=== PATIENT | female | born 1995 ===

== ENCOUNTER 2018-07-07 04:03 | Emergency (ER) | payer MEDICAID ==
[2018-07-07 04:14] VITALS: O2SAT 99
--- NOTE | 2018-07-07 04:57 | C.PDOC ---
History Of Present Illness 22 year old female presents to the ED c/o lower back pain, suprapubic pain and vaginal bleeding. Patient states she took a test at home that was positive 2 weeks ago. Patient states her vaginal bleeding has decreased on arrival to the ED. Patient denies fever, chills, nausea, vomit, diarrhea, dizziness, weakness, numbness. Time Seen by Provider: 07/07/18 04:19 Chief Complaint (Nursing): Female Genitourinary History Per: Patient History/Exam Limitations: no limitations Onset/Duration Of Symptoms: Days Current Symptoms Are (Timing): Still Present Quality Of Discomfort: "Pain" Associated Symptoms: denies: Nausea, Vomiting, Diarrhea Recent travel outside of the [place]: No Additional History Per: Patient Abnormal Vaginal Bleeding: Yes Last Menstral Period: 05/23/18 Past Medical History Reviewed: Historical Data, Nursing Documentation, Vital Signs Vital Signs: Last Vital Signs Temp 98.3 F 07/07/18 04:08 Pulse 83 07/07/18 04:08 Resp 20 07/07/18 04:08 BP 108/70 07/07/18 04:08 Pulse Ox 99 07/07/18 04:59 - Medical History PMH: No Chronic Diseases Surgical History: No Surg Hx Family History: States: Unknown Family Hx - Social History Hx Alcohol Use: No Hx Substance Use: No Review Of Systems Constitutional: Negative for: Fever, Chills Cardiovascular: Negative for: Chest Pain, Palpitations Respiratory: Negative for: Cough, Shortness of Breath Gastrointestinal: Positive for: Abdominal Pain. Negative for: Nausea, Vomiting , Diarrhea Genitourinary: Positive for: Vaginal Bleeding. Negative for: Dysuria Musculoskeletal: Negative for: Back Pain Skin: Negative for: Rash Neurological: Negative for: Weakness, Numbness Physical Exam - Physical Exam Appears: Non-toxic, No Acute Distress Skin: Normal Color, Warm, Dry Head: Atraumatic, Normacephalic Eye(s): bilateral: Normal Inspection Oral Mucosa: Moist Neck: Normal ROM, Supple Chest: Symmetrical Cardiovascular: Rhythm Regular Respiratory: Normal Breath Sounds, No Rales, No Rhonchi, No Wheezing Gastrointestinal/Abdominal: Soft, Tenderness (suprapubic), No Guarding, No Rebound Back: No CVA Tenderness, Paraspinal Tenderness Pelvic: Normal External Exam, Vaginal Discharge (pinkish bloody), No Cervix Open , No Adnexal Tenderness, No Mass, Other (OS closed) Extremity: Normal ROM, No Tenderness, No Swelling Neurological/Psych: Oriented x3, Normal Speech Gait: Steady ED Course And Treatment - Laboratory Results Result Diagrams: 07/07/18 05:05 07/07/18 05:05 Urine POC: Positive O2 Sat by Pulse Oximetry: 99 (ON RA) Pulse Ox Interpretation: Normal Progress Note: Plan: - Labs. - Tyleol 975 mg PO. - UA. 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 - Scribe Statement The provider has reviewed the documentation as recorded by the Scribe Baljit Whitaker All medical record entries made by the Scribe were at my direction and personally dictated by me. I have reviewed the chart and agree that the record accurately reflects my personal performance of the history, physical exam, medical decision making, and the department course for this patient. I have also personally directed, reviewed, and agree with the discharge instructions and disposition. Physician Patient Turnover Patient Signed Over To: Salina Miller Handoff Comments: Pending type screen and OB US
[2018-07-07 05:07] LABS: SQUAMOUS EPITHIAL 4 /hpf (0-5); URINE BACTERIA OCC (<OCC); URINE BILIRUBIN NEGATIVE (NEGATIVE); URINE BLOOD 3+ (NEGATIVE); URINE CLARITY Hazy (Clear); URINE COLOR Yellow (YELLOW); URINE GLUCOSE (UA) NORMAL (Normal); URINE LEUKOCYTE ESTERASE NEG Leu/uL (Negative); URINE PROTEIN 1+ mg/dL (NEGATIVE)
[2018-07-07 05:08] LABS: BASO # 0.1 K/uL (0.0-0.2); BASO % 0.5 % (0.0-2.0); EOS # 0.3 K/uL (0.0-0.7); EOS % 1.8 % (0.0-4.0); HEMOGLOBIN 12.6 g/dL (11.0-16.0); LYMPH # 3.6 K/uL (1.0-4.3); LYMPH % 24.5 % (20.0-40.0); MEAN CELL VOLUME 86.8 fL (81.0-99.0); MEAN CORPUSCULAR HEMOGLOBIN 29.3 pg (27.0-31.0); MEAN CORPUSCULAR HGB CONC 33.7 g/dL (33.0-37.0); MEAN PLATELET VOLUME 8.2 fL (7.2-11.7); MONO % 6.9 % (0.0-10.0); NEUT # 9.7 K/uL (1.8-7.0); NEUT % 66.3 % (50.0-75.0); RBC 4.29 Mil/uL (3.80-5.20); RED CELL DISTRIBUTION WIDTH 13.6 % (11.5-14.5); WHITE BLOOD COUNT 14.6 K/uL (4.8-10.8)
[2018-07-07 05:21] LABS: ALB/GLOB RATIO 1.6 (1.0-2.1); ALBUMIN 4.4 g/dL (3.5-5.0); ALT/SGPT 27 U/L (9-52); AST/SGOT 17 U/L (14-36); BLOOD UREA NITROGEN 10 mg/dL (7-17); CALCIUM 9.3 mg/dl (8.6-10.4); GFR AFRICAN-AMERICAN > 60; GFR NON-AFRICAN AMERICAN > 60
[2018-07-07 08:48] VITALS: BP 101/58; PULSE 81; RESP 16; TEMP 98.6
--- NOTE | 2018-07-07 13:35 | US ---
Pelvic ultrasound History: . Bleeding. Comparison: None available. Technique: Real-time sonography was performed through the pelvis utilizing transvaginal technique. Findings: Uterus: 9.4 x 7.2 x 7.5 centimeters. Heterogeneous echotexture. Anteverted. Cervix measures 3.9 centimeters. Intrauterine with intrauterine gestational sac measuring 2.3 centimeters corresponding to a gestational age of 7 weeks and 0 days. Yolk sac identified measuring 6.7 millimeters. [place]-rump length measures 4 millimeters corresponding to a gestational age of 6 weeks 4 days. heart rate of 130 beats per minute. No free fluid in the pelvic cul-de-sac. Right ovary: 4.1 x 1.8 x 3.3 centimeters. Normal flow. Heterogeneous complex cyst/corpus luteal cyst measuring 2.2 x 1.5 x 2.2 centimeters. Left ovary: 2.8 x 1.8 x 2.9 centimeters. Normal flow. Impression: Intrauterine corresponding to a gestational age of 6 weeks 4 days by crown-rump length of 4 millimeters. heart rate of 130 beats per minute. Right ovarian complex cyst/corpus luteal cyst measuring 2.2 centimeters. Limited 1st trimester ultrasound for viability purposes only. Continued interval followup with serial ultrasound, serial HCG levels, and gynecological consultation would be helpful if clinically indicated. These findings were preliminarily reported at 8:16 a.m. on 07/07/[address] Celestino Landin from [employer].
== END 2018-07-07 08:47 | disposition home or self-care (01) ==
LOC: C.ER 04:03
DX: O46.8X1 Other antepartum hemorrhage, first trimester (principal); Z3A.01 Less than 8 weeks gestation of pregnancy

== ENCOUNTER 2018-08-05 14:47 | Emergency (ER) | payer MEDICAID ==
[2018-08-05 16:05] LABS: BASO # 0.1 K/uL (0.0-0.2); BASO % 0.4 % (0.0-2.0); EOS # 0.4 K/uL (0.0-0.7); EOS % 3.1 % (0.0-4.0); HEMOGLOBIN 11.9 g/dL (11.0-16.0); LYMPH # 4.1 K/uL (1.0-4.3); LYMPH % 33.4 % (20.0-40.0); MEAN CELL VOLUME 86.6 fL (81.0-99.0); MEAN CORPUSCULAR HEMOGLOBIN 29.9 pg (27.0-31.0); MEAN CORPUSCULAR HGB CONC 34.5 g/dL (33.0-37.0); MEAN PLATELET VOLUME 8.5 fL (7.2-11.7); MONO # 0.5 K/uL (0.0-0.8); MONO % 4.4 % (0.0-10.0); NEUT # 7.2 K/uL (1.8-7.0); NEUT % 58.7 % (50.0-75.0); NRBC % 0.1 % (0.0-2.0); RBC 3.98 Mil/uL (3.80-5.20); WHITE BLOOD COUNT 12.3 K/uL (4.8-10.8)
[2018-08-05 16:26] LABS: ALB/GLOB RATIO 1.2 (1.0-2.1); ALBUMIN 3.9 g/dL (3.5-5.0); ALT/SGPT 24 U/L (9-52); AST/SGOT 17 U/L (14-36); BLOOD UREA NITROGEN 10 mg/dL (7-17); CALCIUM 9.3 mg/dl (8.6-10.4); GFR NON-AFRICAN AMERICAN > 60; LIPASE 69 U/L (23-300)
--- NOTE | 2018-08-05 17:08 | US ---
Date of service: 08/05/2018 PROCEDURE: OB Pelvic Ultrasound HISTORY: vaginal bleeding - LMP LMP: 05/23/2018 COMPARISON: Pelvic ultrasound dated 07/07/2018. FINDINGS: UTERUS: Gestational sac: Single intrauterine gestation. Measures 5.8 cm compatible with estimated gestational age is 11 weeks, 6 days Yolk sac: Measures 0.4 cm pole: [place]-rump length measures 3.8 cm compatible with estimated gestational age of 10 weeks, 5 days Heart rate: 154 bpm. age (Ultrasound estimated): 11 weeks, 2 days Maty-gestational hemorrhage: None. Date of delivery (Ultrasound estimated) : 02/22/2019 Uterus measures 13.4 x 0.5 x 10.7 cm. Normal in size and appearance. CERVIX: Measures 3.4 cm. Long and closed. No cervical abnormality seen. RIGHT OVARY: Measures 3.6 x 2.0 x 3.1 cm. No mass lesion. Normal flow. LEFT OVARY: Not visualized FREE FLUID: None. OTHER FINDINGS: None. IMPRESSION: Single viable intrauterine gestation with average ultrasound age of 11 weeks, 2 days. heart rate 154 beats per minute. Cervix long and closed.
--- NOTE | 2018-08-05 17:09 | C.PDOC ---
History Of Present Illness 22 year old female patient presents to the ER with c/o vaginal bleeding for 3 days. Patient reports she is eating well and denies abdominal pain, nausea, vomiting, dysuria and hematuria. Patient notes she has not seen OBGYN for a f/u yet. , P: 1. Time Seen by Provider: 08/05/18 15:07 Chief Complaint (Nursing): Female Genitourinary History Per: Patient History/Exam Limitations: no limitations Onset/Duration Of Symptoms: Days (x3) Current Symptoms Are (Timing): Still Present Past Medical History Reviewed: Historical Data, Nursing Documentation, Vital Signs Vital Signs: Last Vital Signs Temp 99.0 F 08/05/18 17:40 Pulse 90 08/05/18 17:40 Resp 14 08/05/18 17:40 BP 108/64 08/05/18 17:40 Pulse Ox 98 08/05/18 17:40 Family History: States: Unknown Family Hx - Social History Hx Alcohol Use: No Hx Substance Use: No Review Of Systems Except As Marked, All Systems Reviewed And Found Negative. Constitutional: Positive for: Other (eating well) Gastrointestinal: Negative for: Nausea, Vomiting, Abdominal Pain Genitourinary: Positive for: Vaginal Bleeding. Negative for: Dysuria, Hematuria Physical Exam - Physical Exam Appears: Well, Non-toxic, No Acute Distress Skin: Normal Color, Warm, Dry Head: Atraumatic, Normacephalic Eye(s): bilateral: Normal Inspection, PERRL, EOMI Nose: Normal Oral Mucosa: Moist Throat: Normal Neck: Normal ROM, Supple Chest: Symmetrical, No Deformity Cardiovascular: Rhythm Regular Respiratory: Normal Breath Sounds Gastrointestinal/Abdominal: Soft, No Tenderness Back: No CVA Tenderness Extremity: Normal ROM (x4) Neurological/Psych: Oriented x3, Normal Speech ED Course And Treatment - Laboratory Results Result Diagrams: 08/05/18 16:02 08/05/18 16:02 O2 Sat by Pulse Oximetry: 100 (RA) Pulse Ox Interpretation: Normal Medical Decision Making Medical Decision Making: Impression: vaginal bleeding for 3 days Plans: -- beta hcg -- blood work -- test -- first trimester single US STAT Reassess: Patient is resting comfortably. Patient is instructed to f/u with OBGYN in 1-2 days without fail. Disposition - Disposition Referrals: [facility] [Outside] [facility] [Outside] Disposition: HOME/ ROUTINE Disposition Time: 17:00 Condition: GOOD Additional Instructions: LAILA BRYAN, thank you for letting us take care of you today. Your provider was Edwin Rosen DO and you were treated for VAGINAL BLEEDING. The emergency medical care you received today was directed at your acute symptoms. If you were prescribed any medication, please fill it and take as directed. It may take several days for your symptoms to resolve. Return to the Emergency Department if your symptoms worsen, do not improve, or if you have any other problems. Please contact your doctor or call one of the physicians/clinics you have been referred to that are listed on the Patient Visit Information form that is included in your discharge packet. Bring any paperwork you were given at discharge with you along with any medications you are taking to your follow up visit. Our treatment cannot replace ongoing medical care by a primary care provider outside of the emergency department. Thank you for allowing the [facility] team to be part of your care today. Follow up with our [facility]OE EXAMINER clinic this week for re-evaluation and further management. LAILA JOEL IRVIN, mis por dejarnos atenderlo hoy. Moran proveedor fue Edwin Rosen DO y usted recibi tratamiento para VAGINAL BLEEDING. La atencin mdica de emergencia que recibi hoy estaba dirigida a naomi sntomas agudos. Si le prescribieron algn medicamento, llnelo y tome segn las indicaciones. Naomi sntomas pueden tardar varios contreras en resolverse. Regrese al Departamento de Emergencia si naomi sntomas empeoran, no mejoran o si tiene alg n otro problema. Comunquese con moran mdico o llame a samantha de los mdicos / clnicas a los que bridges sido referido que figura en el formulario de Informacin de visita del paciente que se incluye en moran paquete de latha. Traiga todos los documentos que recibi al momento del latha junto con los medicamentos que est tomando en moran visita de seguimiento. Nuestro tratamiento no puede reemplazar la atencin mdica en curso por un proveedor de atencin primaria fuera del departamento de emergencia. Mis por permitir que el equipo de [facility] sea parte de moran cuidado hoy. Susi un seguimiento con nuestra clnica OB / ANALOG IC DESIGN ENGINEER esta semana para la reevaluaci n y la administracin adicional. Prescriptions: Vit No.126/Iron/Folic [Classic Tablet] 1 each PO DAILY #30 tablet Instructions: Threatened Miscarriage (DC), Bleeding With (DC) Forms: Gen Discharge Inst Tanzanian, [employer] (Tanzanian) Print Language: BRUNEIAN - Clinical Impression Clinical Impression: Threatened - Scribe Statement The provider has reviewed the documentation as recorded by the Scribe Glover Do Provider Attestation: All medical record entries made by the Scribe were at my direction and personally dictated by me. I have reviewed the chart and agree that the record accurately reflects my personal performance of the history, physical exam, medical decision making, and the department course for this patient. I have also personally directed, reviewed, and agree with the discharge instructions and disposition.
[2018-08-05 17:41] VITALS: BP 108/64; PULSE 90; RESP 14; TEMP 99
[2018-08-05 23:13] VITALS: O2SAT 100
== END 2018-08-05 17:39 | disposition home or self-care (01) ==
LOC: C.ER 14:47
DX: O20.0 Threatened abortion (principal); Z3A.11 11 weeks gestation of pregnancy

== ENCOUNTER 2018-09-18 05:49 | Emergency (ER) | payer MEDICAID ==
[2018-09-18 06:04] VITALS: O2SAT 100
[2018-09-18] MEDS ORDERED: Sodium Chloride 0.9% 500 ML IV ONE ×2 (06:11→06:42)
--- NOTE | 2018-09-18 06:22 | C.PDOC ---
History Of Present Illness 22 year old female , 13 weeks , presents to the ED for evaluation of palpitations and feeling anxious. Patient reports she ate marijuana cake earlier tonight, however patient reports she did not know the cake contained marijuana. Patient was informed of the fact after and became anxious. Patient denies fever, chills, SOB, CP, abdominal pain, vaginal discharge, vaginal bleeding. Time Seen by Provider: 09/18/18 06:10 Chief Complaint (Nursing): Medical Clearance History Per: Patient History/Exam Limitations: no limitations Onset/Duration Of Symptoms: Hrs Current Symptoms Are (Timing): Still Present Recent travel outside of the [place]: No Additional History Per: Patient Past Medical History Reviewed: Historical Data, Nursing Documentation, Vital Signs Vital Signs: Last Vital Signs Temp 98.5 F 09/18/18 05:59 Pulse 140 H 09/18/18 05:59 Resp 24 09/18/18 05:59 BP 138/83 09/18/18 05:59 Pulse Ox 100 09/18/18 05:59 - Medical History PMH: No Chronic Diseases Surgical History: No Surg Hx Family History: States: Unknown Family Hx - Social History Hx Alcohol Use: No Hx Substance Use: No - Immunization History Hx Tetanus Toxoid Vaccination: No Hx Influenza Vaccination: No Hx Pneumococcal Vaccination: No Review Of Systems Constitutional: Negative for: Fever, Chills Cardiovascular: Negative for: Chest Pain Respiratory: Negative for: Shortness of Breath Gastrointestinal: Negative for: Nausea, Vomiting Genitourinary: Negative for: Vaginal Discharge, Vaginal Bleeding Skin: Negative for: Rash Neurological: Negative for: Weakness, Numbness Psych: Positive for: Anxiety. Negative for: Depression, Suicidal ideation Physical Exam - Physical Exam Appears: Non-toxic, No Acute Distress, Other (anxious appearing ) Skin: Normal Color, Warm, Dry Head: Atraumatic, Normacephalic Eye(s): bilateral: Normal Inspection Neck: Normal ROM, Supple Chest: Symmetrical Cardiovascular: Rhythm Regular (tachycardic) Respiratory: Normal Breath Sounds, No Rales, No Rhonchi, No Wheezing Gastrointestinal/Abdominal: Soft, No Tenderness, No Guarding, No Rebound Extremity: Normal ROM, No Tenderness, No Swelling Neurological/Psych: Oriented x3, Normal Speech, Normal Cognition Gait: Steady ED Course And Treatment ECG: Interpreted By Me, Viewed By Me ECG Rhythm: Sinus Tachycardia Interpretation Of ECG: No acute ST/T wave changes Rate From EC (BPM) O2 Sat by Pulse Oximetry: 100 (ON RA) Pulse Ox Interpretation: Normal Progress Note: Plan: - Labs. - Fluids. 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 - Scribe Statement The provider has reviewed the documentation as recorded by the Scribe Baljit Whitaker All medical record entries made by the Scribe were at my direction and personally dictated by me. I have reviewed the chart and agree that the record accurately reflects my personal performance of the history, physical exam, medical decision making, and the department course for this patient. I have also personally directed, reviewed, and agree with the discharge instructions and disposition.
--- NOTE | 2018-09-18 06:25 | C.PDOC ---
History Of Present Illness 22 year old female , 13 weeks , presents to the ED for evaluation of palpitations and feeling anxious. Patient reports she ate marijuana cake earlier tonight, however patient reports she did not know the cake contained marijuana. Patient was informed of the fact after and became anxious. Patient denies fever, chills, SOB, CP, abdominal pain, vaginal discharge, vaginal bleeding. Time Seen by Provider: 09/18/18 06:10 Chief Complaint (Nursing): Medical Clearance History Per: Patient History/Exam Limitations: no limitations Onset/Duration Of Symptoms: Hrs Current Symptoms Are (Timing): Still Present Recent travel outside of the [place]: No Additional History Per: Patient Past Medical History Reviewed: Historical Data, Nursing Documentation, Vital Signs Vital Signs: Last Vital Signs Temp 98.5 F 09/18/18 05:59 Pulse 140 H 09/18/18 05:59 Resp 24 09/18/18 05:59 BP 138/83 09/18/18 05:59 Pulse Ox 100 09/18/18 05:59 - Medical History PMH: No Chronic Diseases Surgical History: No Surg Hx Family History: States: Unknown Family Hx - Social History Hx Alcohol Use: No Hx Substance Use: No - Immunization History Hx Tetanus Toxoid Vaccination: No Hx Influenza Vaccination: No Hx Pneumococcal Vaccination: No Review Of Systems Constitutional: Negative for: Fever, Chills Cardiovascular: Positive for: Palpitations. Negative for: Chest Pain Respiratory: Negative for: Cough, Shortness of Breath Gastrointestinal: Negative for: Nausea, Vomiting Genitourinary: Negative for: Vaginal Discharge, Vaginal Bleeding Skin: Negative for: Rash Psych: Positive for: Anxiety. Negative for: Depression, Suicidal ideation Physical Exam - Physical Exam Appears: Non-toxic, No Acute Distress, Other (anxious appearing) Skin: Normal Color, Warm, Dry Head: Atraumatic, Normacephalic Eye(s): bilateral: Normal Inspection, PERRL Neck: Normal ROM, Supple Chest: Symmetrical Cardiovascular: Rhythm Regular (tachycardic) Respiratory: Normal Breath Sounds, No Rales, No Rhonchi, No Wheezing Gastrointestinal/Abdominal: Normal Exam (GRAVID), No Tenderness, No Rebound Back: Normal Inspection Extremity: Normal ROM, No Pedal Edema, No Calf Tenderness, No Swelling Neurological/Psych: Oriented x3, Normal Speech Gait: Steady ED Course And Treatment - Laboratory Results Result Diagrams: 09/18/18 06:25 09/18/18 06:25 ECG: Interpreted By Me, Viewed By Me ECG Rhythm: Sinus Tachycardia Interpretation Of ECG: no acute ST/T wave changes Rate From EC (BPM) O2 Sat by Pulse Oximetry: 100 (ON RA) Pulse Ox Interpretation: Normal Progress Note: Plan: - Labs. - UA. - IV fluids. PT IS COMFORTABLE, LESS ANXIOUS, VSS. PT ADVISED OB F/U FOR GLUCOSE TEST AND ADVISED TO EAT FOODS HIGH IN K+. PT IS STABLE FOR DISCHARGE. Reevaluation Time: 06:56 Reassessment Condition: Improved Disposition - Disposition Disposition: HOME/ ROUTINE Disposition Time: 06:23 Condition: STABLE Additional Instructions: Please follow up with PMD / OB KEEP YOURSELF HYDRATED RETURN TO ER IF WORSE Instructions: Marijuana Use and Addiction (DC) Forms: [employer] Connect (Saudi Arabian) - Clinical Impression Clinical Impression: Anxiety, Cannabis use, unspecified, uncomplicated, Medical assessment - PA / LOADER / Resident Statement MD/DO has reviewed & agrees with the documentation as recorded. - Scribe Statement The provider has reviewed the documentation as recorded by the Scribe Baljit Whitaker All medical record entries made by the Scribe were at my direction and personally dictated by me. I have reviewed the chart and agree that the record accurately reflects my personal performance of the history, physical exam, medical decision making, and the department course for this patient. I have also personally directed, reviewed, and agree with the discharge instructions and disposition.
[2018-09-18 06:30] LABS: BASO % 0.3 % (0.0-2.0); EOS # 0.2 K/uL (0.0-0.7); EOS % 1.6 % (0.0-4.0); HEMOGLOBIN 11.8 g/dL (11.0-16.0); LYMPH # 3.7 K/uL (1.0-4.3); LYMPH % 24.5 % (20.0-40.0); MEAN CELL VOLUME 88.6 fL (81.0-99.0); MEAN CORPUSCULAR HEMOGLOBIN 29.8 pg (27.0-31.0); MEAN CORPUSCULAR HGB CONC 33.6 g/dL (33.0-37.0); MEAN PLATELET VOLUME 7.9 fL (7.2-11.7); MONO # 0.9 K/uL (0.0-0.8); MONO % 5.8 % (0.0-10.0); NEUT # 10.2 K/uL (1.8-7.0); NEUT % 67.8 % (50.0-75.0); RBC 3.98 Mil/uL (3.80-5.20); RED CELL DISTRIBUTION WIDTH 14.6 % (11.5-14.5)
[2018-09-18 06:42] LABS: ALB/GLOB RATIO 1.3 (1.0-2.1); ALT/SGPT 24 U/L (9-52); AST/SGOT 17 U/L (14-36); BLOOD UREA NITROGEN 6 mg/dL (7-17); CALCIUM 9.7 mg/dl (8.6-10.4); GFR NON-AFRICAN AMERICAN > 60
[2018-09-18 06:45] LABS: BARBITURATES, UR NEGATIVE (NEGATIVE); BENZODIAZEPINES, UR NEGATIVE (NEGATIVE); OPIATES, UR NEGATIVE (NEGATIVE); PHENCYCLIDINE, UR NEGATIVE (NEGATIVE)
[2018-09-18 07:11] VITALS: BP 117/74; PULSE 103; RESP 20; TEMP 98.4
--- NOTE | 2018-09-19 12:32 | CARD ---
APPROVED REPORT Date of service: 09/18/2018 EKG Measurement Heart [id number] <Conclusion> Sinus tachycardia Possible Left atrial enlargement Borderline ECG
== END 2018-09-18 07:11 | disposition home or self-care (01) ==
LOC: C.ER 05:49
DX: F41.9 Anxiety disorder, unspecified (principal); F12.90 Cannabis use, unspecified, uncomplicated
CPT/HCPCS: 80053; 80324; 80345; 80346; 80349; 80353; 80358; 80361; 83992; 84703; 85025; 93005; 99283; J7040

== ENCOUNTER 2018-09-29 11:18 | Emergency (ER) | payer MEDICAID ==
[2018-09-29 12:41] LABS: SQUAMOUS EPITHIAL 1 /hpf (0-5); URINE BACTERIA RARE (<OCC); URINE BILIRUBIN NEGATIVE (NEGATIVE); URINE BLOOD NEGATIVE (NEGATIVE); URINE CLARITY Clear (Clear); URINE COLOR Colorless (YELLOW); URINE GLUCOSE (UA) NORMAL (Normal); URINE LEUKOCYTE ESTERASE NEG Leu/uL (Negative); URINE PROTEIN NEGATIVE (NEGATIVE); URINE UROBILINOGEN NORMAL mg/dL (0.2-1.0)
--- NOTE | 2018-09-29 14:08 | C.PDOC ---
History Of Present Illness 22-year-old female states she is 18 weeks () presents to the ED because she has not felt movement since 1 day ago. Denies fever, nausea, vomiting, vaginal bleeding, vaginal discharge, dysuria, hematuria, and any other associated symptoms. Time Seen by Provider: 09/29/18 12:08 Chief Complaint (Nursing): Female Genitourinary History Per: Patient History/Exam Limitations: no limitations Onset/Duration Of Symptoms: Hrs Current Symptoms Are (Timing): Still Present Past Medical History Reviewed: Historical Data, Nursing Documentation, Vital Signs Vital Signs: Last Vital Signs Temp 98.2 F 09/29/18 12:56 Pulse 74 09/29/18 12:56 Resp 20 09/29/18 12:56 BP 168/94 H 09/29/18 12:56 Pulse Ox 97 09/29/18 12:56 Family History: States: Unknown Family Hx - Social History Hx Alcohol Use: No Hx Substance Use: No - Immunization History Hx Tetanus Toxoid Vaccination: Yes Hx Influenza Vaccination: Yes Hx Pneumococcal Vaccination: Yes Review Of Systems Constitutional: Negative for: Fever Gastrointestinal: Positive for: Other (decreased movement.). Negative for: Nausea, Vomiting Genitourinary: Negative for: Dysuria, Hematuria, Vaginal Discharge, Vaginal Bleeding Physical Exam - Physical Exam Appears: Well, Non-toxic Skin: Normal Color, Warm, Dry Head: Atraumatic, Normacephalic Eye(s): bilateral: Normal Inspection Oral Mucosa: Moist Neck: Normal ROM, Supple Chest: Symmetrical, No Deformity Cardiovascular: Rhythm Regular, No Murmur Respiratory: Normal Breath Sounds, No Rales, No Rhonchi, No Wheezing Gastrointestinal/Abdominal: Normal Exam, Soft, No Tenderness Neurological/Psych: Oriented x3, Normal Speech ED Course And Treatment O2 Sat by Pulse Oximetry: 97 (RA) Pulse Ox Interpretation: Normal - CT Scan/US US OB Limited Other Rad Studies (CT/US): Read By Radiologist CT/US Interpretation: FINDINGS: UTERUS: Gestational sac: Single intrauterine fetus in variable presentation. Heart rate: 140 bpm. age (Ultrasound estimated): 19 weeks 0 day. Maty-gestational hemorrhage: None. Date of delivery (Ultrasound estimated) : 02/23/2019. Placenta is posterior. CERVIX: Measures 3.8 cm. Long and closed. No cervical abnormality seen. RIGHT OVARY: Not visualized. LEFT OVARY: Not visualized. FREE FLUID: None. OTHER FINDINGS: None. IMPRESSION: Single live intrauterine fetus in variable presentation with mean gestational age of 19 weeks and 0 day. The estimated date of delivery by ultrasound is 02/23/2019. The ultrasound dates correlate with the clinical dates. Placenta is posterior. Cervix is closed. Please note this is a limited OB ultrasound performed on an emergent basis, follow-up dedicated anatomic survey is recommended. Progress Note: Plan: Urine HCG Beta Quant. Urinalysis. US OB Preg. Limited. Progress/Update: US OB Limited viewed by me. Patient is stable for discharge home. Disposition Counseled Patient/Family Regarding: Studies Performed, Diagnosis, Need For Followup - Disposition Referrals: [facility] [Outside] Disposition: HOME/ ROUTINE Disposition Time: 15:05 Condition: STABLE Additional Instructions: FOLLOW UP WITH YOUR WEIGHER ALLOY WITHIN 1 WEEK RETURN TO EMERGENCY ROOM IF SYMPTOMS WORSEN SEGUIR CON HUFF OB / PROGRAM ENGAGEMENT DIRECTOR DENTRO DE 1 SEMANA VUELVA A LA DIOR DE EMERGENCIA SI LOS SNTOMAS SE FRAGA PROBLEMAS Instructions: Symptoms Forms: [facility] (Lithuanian) Print Language: LUXEMBOURGISH - Clinical Impression Clinical Impression: - Scribe Statement The provider has reviewed the documentation as recorded by the Scribe (Yana Mercedes) Provider Attestation: All medical record entries made by the Scribe were at my direction and personally dictated by me. I have reviewed the chart and agree that the record accurately reflects my personal performance of the history, physical exam, medical decision making, and the department course for this patient. I have also personally directed, reviewed, and agree with the discharge instructions and disposition.
--- NOTE | 2018-09-29 14:15 | US ---
Date of service: 09/29/2018 PROCEDURE: OB Pelvic Ultrasound HISTORY: , eval LMP: 05/23/2018 COMPARISON: None available. FINDINGS: UTERUS: Gestational sac: Single intrauterine fetus in variable presentation. Heart rate: 140 bpm. age (Ultrasound estimated): 19 weeks 0 day Maty-gestational hemorrhage: None. Date of delivery (Ultrasound estimated) : 02/23/2019 Placenta is posterior. CERVIX: Measures 3.8 cm. Long and closed. No cervical abnormality seen. RIGHT OVARY: Not visualized. LEFT OVARY: Not visualized. FREE FLUID: None. OTHER FINDINGS: None. IMPRESSION: Single live intrauterine fetus in variable presentation with mean gestational age of 19 weeks and 0 day. The estimated date of delivery by ultrasound is 02/23/2019. The ultrasound dates correlate with the clinical dates. Placenta is posterior. Cervix is closed. Please note this is a limited OB ultrasound performed on an emergent basis, follow-up dedicated anatomic survey is recommended.
[2018-09-29 14:18] VITALS: RESP 18
[2018-09-29 15:22] VITALS: BP 108/73; PULSE 90; TEMP 98.3; O2SAT 99
== END 2018-09-29 15:25 | disposition home or self-care (01) ==
LOC: C.ER 11:18
DX: O26.892 Other specified pregnancy related conditions, second trimester (principal); Z3A.19 19 weeks gestation of pregnancy